=== PATIENT | female | born 1975 | race Caucasian/White ===

== ENCOUNTER 2018-01-08 06:17 | Emergency (ER) | payer SELFPAY ==
[~2018-01-08] VITALS: Ht 154.9 cm; Wt 42.0 kg
[~2018-01-08 06:17] MED LIST: IBUP800T23 PO; METH500T3 PO
[2018-01-08 06:32] VITALS: BP 126/79; PULSE 108; RESP 22; TEMP 97.8; O2SAT 96
[2018-01-08 06:49] VITALS: BP 128/82; PULSE 105; RESP 22; O2SAT 96
--- NOTE | 2018-01-08 06:59 | PD ---
HPI Chief Complaint: Respiratory Symptoms Time Seen by Provider: 06:53 Travel History International Travel<30 days: No Contact w/Intl Traveler<30days: No Traveled to known affect area: No History of Present Illness HPI 42-year-old female presents to the emergency department by EMS transport from home for complaint of sciatica pain anxiety and exacerbation of her asthma/ COPD. Patient is a tobacco smoker. Patient states she has been plagued with sciatica pain affecting her left lower extremity referred pain to the left lower leg for several days and has been just lying down and then this morning pain was worse and so he started to breathe faster felt anxious and then started noticing wheezing. Patient denies fever chills. Patient's had no chest pain patient's had no pleuritic pain denies abdominal pain no nausea or vomiting. Patient's had no dysuria frequency urgency flank pain or diarrhea. Patient denies as she is currently menstruating. Patient has not taken any acetaminophen or ibuprofen. Patient states that she has a rescue inhaler and used over 50 inhalation sprays this morning trying to control her wheezing. EMS arrived and gave her 1 albuterol neb treatment and symptoms are markedly improved reportedly EMS reported room air O2 saturation upon their initial assessment 92% upon arrival to the emergency department 94-96%. She states she has taken no acetaminophen or ibuprofen because she does not have any. 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)) Patient Takes Glucophage: No Diminished Hearing: No Genitourinary: Yes (H/O PID) Musculoskeletal: Yes (BACK PROBLEMS) Respiratory: Yes (Asthma/copd?) Immunizations Current: Yes ?: Not LMP: 01/04/18 : 2 Para: 1 Miscarriage: 1 : 1 Past Surgical History Gynecologic Surgery: Yes (LEEP x2) Thoracic Surgery: Yes (BREAST AUG.) Other Surgery: Yes (BREAST AUGMENTATION) Social History Alcohol Use: Yes (RARE) Tobacco Use: Yes (1 PPD) Substance Use: No Allergies-Medications (Allergen,Severity, Reaction): Coded Allergies: codeine (Verified Allergy, Intermediate, hives, 01/08/18) "my skin turns red and I itch badly" Reported Meds & Prescriptions Reported Meds & Active Scripts Active Ibuprofen 800 Mg Tab 800 Mg PO Q6H PRN Robaxin (Methocarbamol) 500 Mg Tab 500 Mg PO QID PRN Review of Systems Except as stated in HPI: all other systems reviewed are Neg Physical Exam Narrative GENERAL: Well-developed well-nourished thin female no acute distress no respiratory distress SKIN: Warm and dry. HEAD: Normocephalic. EYES: No scleral icterus. No injection or drainage. NECK: Supple, trachea midline. No JVD or lymphadenopathy. CARDIOVASCULAR: Regular rate and rhythm without murmurs, gallops, or rubs. RESPIRATORY: Breath sounds equal bilaterally. No accessory muscle use. GASTROINTESTINAL: Abdomen soft, non-tender, nondistended. MUSCULOSKELETAL: No cyanosis, or edema. BACK: Nontender without obvious deformity. No CVA tenderness. Data Data Last Documented VS Vital Signs Date Time Temp Pulse Resp B/P (MAP) Pulse Ox O2 Delivery O2 Flow Rate FiO2 01/08/18 07:07 96 Room Air 01/08/18 07:00 110 22 128/82 (97) 01/08/18 06:32 97.8 Orders Orders Complete Blood Count With Diff (01/08/18 06:53) Basic Metabolic Panel (Bmp) (01/08/18 06:53) Magnesium (Mg) (01/08/18 06:53) Iv Access Insert/Monitor (01/08/18 06:53) Ecg Monitoring (01/08/18 06:53) Oximetry (01/08/18 06:53) Oxygen Administration (01/08/18 06:53) Chest, Single Ap (01/08/18 06:53) Sodium Chloride 0.9% Flush (Ns Flush) (01/08/18 07:00) Methylprednisolone So Succ Inj (Solumedr (01/08/18 07:00) Albuterol-Ipratropium Neb (Duoneb Neb) (01/08/18 07:00) Ketorolac Inj (Toradol Inj) (01/08/18 07:00) Urinalysis - C+S If Indicated (01/08/18 06:53) Sodium Chlorid 0.9% 500 Ml Inj (Ns 500 M (01/08/18 07:00) Ed Urine Pregnancytest Poc (01/08/18 06:55) MDM Medical Decision Making Medical Screen Exam Complete: Yes Emergency Medical Condition: Yes Medical Record Reviewed: Yes Differential Diagnosis Exacerbation asthma, dyspnea, pneumonia, PE, sciatica, dehydration, anxiety Narrative Course Specimens collected and sent for resulting imaging study ordered; patient administered Solu-Medrol for asthma Toradol for sciatica and DuoNeb updraft Patient's care signed over to oncoming physician; At 7[address] care signed over to Dr. Shanelle Jhaveri,Natalie Muro MD Jan 08, 2018 06:59
[2018-01-08 07:00] VITALS: BP 128/82; PULSE 110; RESP 22; O2SAT 96
[2018-01-08] MEDS ORDERED: RESP: ALBUTEROL 2.5 MG/IPRATROPIUM 0.5 MG NEB (SCH) INH ONE (07:00)
[2018-01-08] MEDS ORDERED: methylPREDNISolone SOD SUCC 125 MG/2 ML VIAL IV PUSH ONE (07:00)
[2018-01-08] MEDS ORDERED: SODIUM CHLORIDE 0.9% FLUSH 10 ML FLUSH IVF PRN (07:00)
[2018-01-08] MEDS ORDERED: KETOROLAC TROMETHAMINE 30 MG/ML (IVP) VIAL IV PUSH ONE (07:00)
[2018-01-08] MEDS ORDERED: SODIUM CHLORID 0.9% 500 ML INJ 500 ML IV ONE (07:00)
[2018-01-08] MEDS ORDERED: VENTAER INH ×2 (07:20→08:46)
--- NOTE | 2018-01-08 07:21 | RADRPT ---
EXAM DATE/TIME: 01/08/2018 07:11 [place] COMPARISON: No previous studies available for comparison. INDICATIONS : Shortness of breath and congestion for two days. MEDICAL HISTORY : Chronic obstructive pulmonary disease. Asthma. SURGICAL HISTORY : None. ENCOUNTER: Initial ACUITY: 2 days PAIN SCORE: 0/10 LOCATION: Bilateral chest FINDINGS: The lungs are markedly hyperinflated but are lies clear. There is no evidence of acute airspace disea se or congestion. Heart and mediastinal structures are unremarkable. Osseous structures are intact. CONCLUSION: 1. COPD 2. No evidence of acute process. Ramez Snow MD on January 08, 2018 at 7:19 Board Certified Radiologist. This report was verified electronically.
[2018-01-08 07:33] LABS: BASOPHIL # 0.1 TH/MM3 (0-0.2); BASOPHIL % 0.7 % (0.0-2.0); EOSINOPHIL # 1.4 TH/MM3 (0-0.4); EOSINOPHIL % 12.4 % (0.0-4.0); HEMATOCRIT 38.5 % (35.0-46.0); HEMOGLOBIN 13.4 GM/DL (11.6-15.3); LYMPH % 26.3 % (9.0-44.0); LYMPHOCYTE # 2.9 TH/MM3 (1.0-4.8); MEAN CORPUSCULAR HGB CONC 34.9 % (32.0-36.0); MEAN PLATELET VOLUME 7.8 FL (7.0-11.0); MONO % 5.8 % (0.0-8.0); MONOCYTE # 0.6 TH/MM3 (0-0.9); NEUT % 54.8 % (16.0-70.0); PLATELET COUNT 236 TH/MM3 (150-450); RED BLOOD COUNT 4.33 MIL/MM3 (4.00-5.30); RED CELL DISTRIBUTION WIDTH 15.4 % (11.6-17.2)
[2018-01-08 08:30] LABS: BACTERIA, URINE OCC /hpf; BILIRUBIN, URINE NEG (NEG); BLOOD, URINE MOD (NEG); GLUCOSE,URINE NEG (NEG); KETONE, URINE NEG (NEG); MUCUS URINE FEW /lpf (OCC); NITRITE,URINE NEG (NEG); PH, URINE 5.5 (5.0-8.5); SQUAMOUS EPITHELIAL CELL URINE 18 /hpf (0-5); TRICHOMONAS, URINE RARE; URINE COLOR YELLOW (YELLW/STRAW); URINE LEUKOCYTE ESTERASE TRACE (NEG)
[2018-01-08 08:32] LABS: CALCIUM 8.2 MG/DL (8.5-10.1); CREATININE 0.92 MG/DL (0.50-1.00); MAGNESIUM 2.1 MG/DL (1.5-2.5)
[2018-01-08] MEDS ORDERED: PRED20 PO (08:44)
[2018-01-08] MEDS ORDERED: ONDANSETRON HCL 4 MG/2 ML VIAL IV PUSH ONE (08:45)
[2018-01-08] MEDS ORDERED: metroNIDAZOLE 500 MG TAB PO ONE (08:45)
[2018-01-08] MEDS ORDERED: VIST25CA PO (08:46)
--- NOTE | 2018-01-08 08:47 | PD ---
Physical Exam Narrative GENERAL: 42-year-old female in no apparent distress SKIN: Focused skin assessment warm/dry. HEAD: Atraumatic. Normocephalic. EYES: Pupils equal and round. No scleral icterus. No injection or drainage. ENT: No nasal bleeding or discharge. Mucous membranes pink and moist. NECK: Trachea midline. No JVD. CARDIOVASCULAR: Regular rate and rhythm. RESPIRATORY: No accessory muscle use. Clear to auscultation. Breath sounds equal bilaterally. MUSCULOSKELETAL: No obvious deformities. No clubbing. No cyanosis. No edema. NEUROLOGICAL: Awake and alert. No obvious cranial nerve deficits. Motor grossly within normal limits. Normal speech. PSYCHIATRIC: Appropriate mood and affect; insight and judgment normal. Data Data Last Documented VS Vital Signs Date Time Temp Pulse Resp B/P (MAP) Pulse Ox O2 Delivery O2 Flow Rate FiO2 01/08/18 07:07 96 Room Air 01/08/18 07:00 110 22 128/82 (97) 01/08/18 06:32 97.8 Orders Orders Complete Blood Count With Diff (01/08/18 06:53) Basic Metabolic Panel (Bmp) (01/08/18 06:53) Magnesium (Mg) (01/08/18 06:53) Iv Access Insert/Monitor (01/08/18 06:53) Ecg Monitoring (01/08/18 06:53) Oximetry (01/08/18 06:53) Oxygen Administration (01/08/18 06:53) Chest, Single Ap (01/08/18 06:53) Sodium Chloride 0.9% Flush (Ns Flush) (01/08/18 07:00) Methylprednisolone So Succ Inj (Solumedr (01/08/18 07:00) Albuterol-Ipratropium Neb (Duoneb Neb) (01/08/18 07:00) Ketorolac Inj (Toradol Inj) (01/08/18 07:00) Urinalysis - C+S If Indicated (01/08/18 06:53) Sodium Chlorid 0.9% 500 Ml Inj (Ns 500 M (01/08/18 07:00) Ed Urine Pregnancytest Poc (01/08/18 06:55) Metronidazole (Flagyl) (01/08/18 08:45) Ondansetron Inj (Zofran Inj) (01/08/18 08:45) Ed Discharge Order (01/08/18 08:58) Labs Laboratory Tests Test 01/08/18 06:45 01/08/18 07:51 01/08/18 08:01 White Blood Count 11.0 TH/MM3 Red Blood Count 4.33 MIL/MM3 Hemoglobin 13.4 GM/DL Hematocrit 38.5 % Mean Corpuscular Volume 89.0 FL Mean Corpuscular Hemoglobin 31.0 PG Mean Corpuscular Hemoglobin Concent 34.9 % Red Cell Distribution Width 15.4 % Platelet Count 236 TH/MM3 Mean Platelet Volume 7.8 FL Neutrophils (%) (Auto) 54.8 % Lymphocytes (%) (Auto) 26.3 % Monocytes (%) (Auto) 5.8 % Eosinophils (%) (Auto) 12.4 % Basophils (%) (Auto) 0.7 % Neutrophils # (Auto) 6.0 TH/MM3 Lymphocytes # (Auto) 2.9 TH/MM3 Monocytes # (Auto) 0.6 TH/MM3 Eosinophils # (Auto) 1.4 TH/MM3 Basophils # (Auto) 0.1 TH/MM3 CBC Comment DIFF FINAL Differential Comment Urine Color YELLOW Urine Turbidity HAZY Urine pH 5.5 Urine Specific [place] 1.023 Urine Protein 30 mg/dL Urine Glucose (UA) NEG mg/dL Urine Ketones NEG mg/dL Urine Occult Blood MOD Urine Nitrite NEG Urine Bilirubin NEG Urine Urobilinogen LESS THAN 2.0 MG/DL Urine Leukocyte Esterase TRACE Urine RBC 1 /hpf Urine WBC 5 /hpf Urine Squamous Epithelial Cells 18 /hpf Urine Bacteria OCC /hpf Urine Granular Casts 7 /lpf Urine Mucus FEW /lpf Urine Trichomonas RARE Microscopic Urinalysis Comment CULT NOT INDICATED Blood Urea Nitrogen 14 MG/DL Creatinine 0.92 MG/DL Random Glucose 133 MG/DL Calcium Level 8.2 MG/DL Magnesium Level 2.1 MG/DL Sodium Level 140 MEQ/L Potassium Level 3.6 MEQ/L Chloride Level 105 MEQ/L Carbon Dioxide Level 27.0 MEQ/L Anion Gap 8 MEQ/L Estimat Glomerular Filtration Rate 66 ML/MIN [facility] Supervised Visit with MONTSE: No Interpretation(s) CBC & BMP Diagram 01/08/18 06:45 01/08/18 08:01 Calcium Level 8.2 L, Magnesium Level 2.1 Last 24 hours Impressions Chest X-Ray 01/08/18 0625 Signed Impressions: Service Date/Time: Monday, January 08, 2018 07:11 - CONCLUSION: 1. COPD 2. No evidence of acute process. Ramez Snow MD urine with incidental Trichomonas which was treated with Flagyl and patient informed to use protection and get repeat testing as an outpatient Narrative Course signed over to me to follow labs and if ok d/c, on reevaluation patient states they are feeling better, ctab, 98 on room air, heart rate 100, Patient denies any new complaints and states that they are feeling better. Patient happy with care, all questions answered. Patient knows that follow up is incumbent on them and to return to the emergency room immediately if new or worsening symptoms develop. Patient given strict return precautions, vitals reviewed and are normal , agrees to further workup as an outpatient. Requesting refill of albuterol which was given, will place on prednisone for COPD exacerbation and provided with Vistaril to use as needed for anxiety. She is in agreement to the above. She states she has a muscle relaxant already at home for her sciatica. Diagnosis Primary Impression: COPD exacerbation Additional Impressions: Anxiety Infection due to trichomonas Patient Instructions: General Instructions Additional Instruction: follow with primary tommorrow, return as needed, tylenol and motrin as needed, albuterol as needed Med/Other Pt SpecificInfo: Prescription(s) given Scripts Hydroxyzine Pamoate (Vistaril) 25 Mg Cap 25 MG PO HS Y for ANXIETY, #10 CAP 0 Refills Prov: Tracy Timmons MD 01/08/18 Albuterol 18 GM Inh (Ventolin Hfa 18 GM Inh) 90 Mcg/Act Aer 2 PUFF INH Q6H Y for SHORTNESS OF BREATH, #1 INHALER 0 Refills Prov: Tracy Timmons MD 01/08/18 Prednisone (Prednisone) 20 Mg Tab 40 MG PO DAILY for 5 Days, #10 TAB 0 Refills Take 40 mg (2 tablets) daily for 5 days Prov: Tracy Timmons MD 01/08/18 Disposition: 01 DISCHARGE HOME Condition: Stable Tracy Timmons MD Jan 08, 2018 08:47
== END 2018-01-08 09:09 | disposition home or self-care (01) ==
LOC: NEPC 06:17
DX: J44.1 Chronic obstructive pulmonary disease with (acute) exacerbation (principal); F41.9 Anxiety disorder, unspecified; A59.9 Trichomoniasis, unspecified; F17.210 Nicotine dependence, cigarettes, uncomplicated; M54.32 Sciatica, left side
CPT/HCPCS: 71045; 80048; 81001; 83735; 84703; 85025; 96374; 96375; 99284; J1885; J2405; J2930; J7040